=== PATIENT | female | born 1980 | race Caucasian/White ===

== ENCOUNTER 2017-07-20 06:39 | Emergency (ER) | payer MEDICAID ==
[~2017-07-20] VITALS: Ht 170.2 cm; Wt 79.9 kg
[~2017-07-20 06:39] MED LIST: HYDR-1666
[2017-07-20 06:41] VITALS: Ht 170.2 cm; Wt 79.9 kg
[2017-07-20 07:29] LABS: BASOPHILS % 0.3 % (0.0-2.0); EOSINOPHILS # 0.1 10^3/ul (0.0-0.5); EOSINOPHILS % 1.9 % (0.0-7.0); HEMATOCRIT 40.9 % (37.0-47.0); HEMOGLOBIN 14.3 g/dl (12.0-16.0); LYMPHOCYTES # 1.9 10^3/ul (0.8-2.9); LYMPHOCYTES % 30.4 % (15.0-51.0); MEAN CORPUSCULAR VOLUME 88.5 fl (82.0-101.0); MEAN PLATELET VOLUME 10.7 fl (7.4-10.4); MONOCYTE # 0.4 10^3/ul (0.3-0.9); MONOCYTES % 6.3 % (0.0-11.0); NEUTROPHIL # 3.8 10^3/ul (1.6-7.5); NEUTROPHILS % 60.6 % (39.0-77.0); PLATELET COUNT 216 10^3/UL (140-415); RED BLOOD COUNT 4.62 10^6/ul (4.20-5.40); RED CELL DISTRIBUTION WIDTH 14.3 % (11.5-14.5); WHITE BLOOD COUNT 6.2 10^3/ul (4.8-10.8)
[2017-07-20 07:35] LABS: ADD UMIC YES; UR ASCORBIC ACID NEGATIVE (NEGATIVE); UR BACTERIA FEW /HPF (NONE SEEN); UR BILIRUBIN (Dip) NEGATIVE (NEGATIVE); UR BLOOD (Dip) 3+ mg/dL (NEGATIVE); UR CLARITY CLEAR (CLEAR); UR COLOR STRAW (YELLOW); UR GLUCOSE (Dip) NEGATIVE (NEGATIVE); UR KETONES (Dip) NEGATIVE (NEGATIVE); UR LEUKOCYTE ESTERASE (Dip) NEGATIVE Leu/ul (NEGATIVE); UR NITRITE (Dip) NEGATIVE (NEGATIVE); UR RBC 1 /HPF (0-5); UR SPECIFIC GRAVITY (Dip) 1.004 (1.003-1.030); UR SQUAMOUS EPITHELIAL CELL FEW /HPF (FEW); UR TOTAL PROTEIN (Dip) NEGATIVE (NEGATIVE); UR UROBILINOGEN (Dip) NEGATIVE (NEGATIVE)
--- NOTE | 2017-07-20 07:49 | RADRPT ---
PROCEDURE: OB Ultrasound. CLINICAL INDICATION: Positive test. Vaginal bleeding. TECHNIQUE: Ultrasound of the pelvis was performed with transabdominal sonography in the axial and sagittal planes. COMPARISON: No prior study is available for comparison. FINDINGS: There is a single intrauterine gestational sac. pole and yolk sac are present. There is heart motion. heart rate is 168 beats per minute. [place]-rump length is 2.04 cm. Mean sac diameter is 3.32 cm. There is a small subchorionic hemorrhage alayna Menstrual age by ultrasound dates is 8 weeks 4 days. This indicates an expected date of delivery of 02/25/2018. The ovaries are not visualized. There is no other pelvic mass or free fluid. IMPRESSION: 1. Single live intrauterine gestation of 8 weeks 4 days menstrual age by ultrasound dates. 2. Expected date of delivery is 02/25/2018. 3. Small subchorionic hemorrhage. RPTAT: QQ .Tan Clay MD, MD Date Time Electronically viewed and signed by .Tan Clay MD, on 07/20/2017 07:49 .R/
--- NOTE | 2017-07-20 08:57 | ERD ---
ER Documentation Chief Complaint Date/Time DATE: 07/20/17 TIME: 08:55 Chief Complaint 6 weeks with ap and bleeding HPI This 37-year-old female is approximately 6 weeks by dates. She has had some vaginal bleeding earlier this morning. She has minimal cramping. She denies fevers, vomiting. The pain is in her right pelvic area. Denies dysuria. ROS All systems reviewed and are negative except as per history of present illness. Medications Home Meds Reported Medications Hydrocodone Bit/Acetaminophen (Vicodin 5/500 Tablet) 1 Tab Tablet 02/12/11 Allergies Allergies: Coded Allergies: No Known Drug Allergy (Verified Allergy, Mild, 02/12/11) PMhx/Soc Medical and Surgical Hx: pt denies Medical Hx, pt denies Surgical Hx History of Surgery: No Anesthesia Reaction: No Hx Neurological Disorder: No Hx Respiratory Disorders: No Hx Cardiac Disorders: No Hx Psychiatric Problems: No Hx Miscellaneous Medical Probl: No Hx Alcohol Use: No Hx Substance Use: No Hx Tobacco Use: No Smoking Status: Never smoker Physical Exam Vitals Vital Signs Date Time Temp Pulse Resp B/P Pulse Ox O2 Delivery O2 Flow Rate FiO2 07/20/17 06:41 98.1 63 18 140/90 99 Physical Exam Const: [], [id number]. Head: Atraumatic Eyes: Normal Conjunctiva ENT: Normal External Ears, Nose and Mouth. Neck: Full range of motion..~ No meningismus. Resp: Clear to auscultation bilaterally Cardio: Regular rate and rhythm, no murmurs Abd: Soft, minimal right suprapubic tenderness. No exquisite tenderness at McBurney's point no Petit sign and no rebound., non distended. Normal bowel sounds Skin: No petechiae or rashes Back: No midline or flank tenderness Ext: No cyanosis, or edema Neur: Awake and alert Psych: Normal Mood and Affect Result Diagram: 07/20/17 0715 Results 24 hrs Laboratory Tests Test 07/20/17 07:10 07/20/17 07:15 Urine Color STRAW Urine Clarity CLEAR Urine pH 6.0 Urine Specific Arabi 1.004 Urine Ketones NEGATIVEmg/dL Urine Nitrite NEGATIVEmg/dL Urine Bilirubin NEGATIVEmg/dL Urine Urobilinogen NEGATIVEmg/dL Urine Leukocyte Esterase NEGATIVELeu/ul Urine Microscopic RBC 1/HPF Urine Microscopic WBC 1/HPF Urine Squamous Epithelial Cells FEW/HPF Urine Bacteria FEW/HPF Urine Hemoglobin 3+mg/dL Urine Glucose NEGATIVEmg/dL Urine Total Protein NEGATIVEmg/dl White Blood Count 6.210^3/ul Red Blood Count 4.6210^6/ul Hemoglobin 14.3g/dl Hematocrit 40.9% Mean Corpuscular Volume 88.5fl Mean Corpuscular Hemoglobin 31.0pg Mean Corpuscular Hemoglobin Concent 35.0g/dl Red Cell Distribution Width 14.3% Platelet Count 57791^3/UL Mean Platelet Volume 10.7fl Neutrophils % 60.6% Lymphocytes % 30.4% Monocytes % 6.3% Eosinophils % 1.9% Basophils % 0.3% Nucleated Red Blood Cells % 0.0/100WBC Neutrophils # 3.810^3/ul Lymphocytes # 1.910^3/ul Monocytes # 0.410^3/ul Eosinophils # 0.110^3/ul Basophils # 0.010^3/ul Nucleated Red Blood Cells # 0.010^3/ul Beta HCG, Quantitative 296170.0mIU/ml Procedures/MDM Pelvic ultrasound shows normal-appearing first trimester intrauterine without evidence of ectopic , torsion. There is a small subchorionic hemorrhage. Patient is Rh+. There is no additional abnormalities on laboratory studies. Patient is amatory [id number]. Patient presents with vaginal bleeding first trimester without evidence of ectopic , ovarian torsion, signs to suggest appendicitis or additional emergent causes of presenting complaints. She will discharged home with observation with primary care and OB follow-up and return precautions.. Departure Diagnosis: Primary Impression: Vaginal bleeding in patient at less than 20 weeks ges... Condition: Stable Patient Instructions: Bleeding During Early Additional Instructions: Examines normal hoy. Cheque otro vez con moncada doctor primario en el proximo sánchez or regresa para mas o nueva simptomas. MARCELA GALLAGHER MD Jul 20, 2017 08:57
[2017-07-22] MEDS ORDERED: ACET500C5 PO (12:35)
== END 2017-07-20 09:12 | disposition home or self-care (01) ==
LOC: FTE 06:39
DX: O20.9 Hemorrhage in early pregnancy, unspecified (principal); R10.2 Pelvic and perineal pain; Z3A.08 8 weeks gestation of pregnancy
CPT/HCPCS: 36415; 76801; 81001; 84702; 85025; 86900; 86901; Z7502

== ENCOUNTER 2017-07-22 06:39 | Emergency (ER) | END 2017-07-22 13:03 | disposition home or self-care (01) | DX: O20.9 Hemorrhage in early pregnancy, unspecified (principal); R10.2 Pelvic and perineal pain; Z3A.08 8 weeks gestation of pregnancy | CPT/HCPCS: 36415; 76801; 76817; 81001; 84702; 85025; Z7502 ==